=== PATIENT | female | born 1980 | race Caucasian/White ===

== ENCOUNTER 2017-01-10 11:10 | Emergency (ER) | payer OTHER ==
[~2017-01-10] VITALS: Ht 162.6 cm; Wt 81.5 kg
[2017-01-10] MEDS ORDERED: ONDANSETRON 2MG/ML, 2ML ONE (12:17)
[2017-01-10] MEDS ORDERED: MORPHINE SULFATE 4 MG/ML, 1ML ONE ×2 (12:17→13:11)
[2017-01-10] MEDS ORDERED: ONDANSETRON 2MG/ML, 2ML IVPush ONE (12:30)
[2017-01-10] MEDS ORDERED: SODIUM CHLORIDE FLUSH 10ML SYR IVF ONE (12:30)
[2017-01-10] MEDS ORDERED: MORPHINE SULFATE 4 MG/ML, 1ML IVPush PRN (12:30)
[2017-01-10 12:47] LABS: HEMOGLOBIN 13.6 g/dL (11.7-16.4)
[2017-01-10 12:55] LABS: ASPARTATE AMINO TRANSFERASE 18 U/L (15-37); BLOOD UREA NITROGEN 13 mg/dL (7-18)
[2017-01-10 15:12] VITALS: BP 99/57
== END 2017-01-10 15:15 | disposition home or self-care (01) ==
LOC: ED 14:56
DX: O20.0 Threatened abortion (principal); Z3A.09 9 weeks gestation of pregnancy
CPT/HCPCS: 36415; 76770; 76830; 80053; 81003; 84702; 85025; 86901; 96374; 96375; 99285; J2405

== ENCOUNTER 2017-06-09 16:30 | Outpatient (CLI) | payer OTHER ==
[~2017-06-09] VITALS: Ht 162.6 cm; Wt 91.4 kg
[2017-06-09] MEDS ORDERED: BETAMETHASONE 6 MG/ML, 5ML IM ONE ×2 (17:00→17:10)
[2017-06-09 17:31] VITALS: BP 121/60
[2017-06-09] MEDS ORDERED: PREN1TAB10 PO (17:54)
[2017-06-10] MEDS ORDERED: BETAMETHASONE 6 MG/ML, 5ML IM ONE (17:00)
== END 2017-06-09 18:08 | disposition home or self-care (01) ==
LOC: LDOP 16:30
PROVIDERS: ATTEND Obstetrics & Gynecology
DX: O09.523 Supervision of elderly multigravida, third trimester (principal); O60.03 Preterm labor without delivery, third trimester; Z3A.31 31 weeks gestation of pregnancy
CPT/HCPCS: 59025; 96372; 99211; J0702; G0463

== ENCOUNTER 2017-06-10 16:08 | Observation (INO) | payer OTHER ==
[~2017-06-10] VITALS: Ht 162.6 cm; Wt 91.4 kg
[~2017-06-10 16:08] MED LIST: PREN1TAB10 PO
[2017-06-10 16:13] VITALS: BP 106/62
[2017-06-10 16:28] VITALS: BP 106/62
[2017-06-10] MEDS ORDERED: BETAMETHASONE 6 MG/ML, 5ML IM ONE (16:30)
== END 2017-06-10 16:54 | disposition home or self-care (01) ==
LOC: LDOP 16:08 → LDIP 16:09
PROVIDERS: ADMIT Obstetrics & Gynecology; ATTEND Obstetrics & Gynecology
DX: O09.523 Supervision of elderly multigravida, third trimester (principal); Z3A.00 Weeks of gestation of pregnancy not specified
CPT/HCPCS: 59025; 96372; 99211; G0378; J0702; G0463

== ENCOUNTER 2017-07-08 11:26 | Outpatient (CLI) | payer OTHER ==
[~2017-07-08] VITALS: Ht 162.6 cm; Wt 92.7 kg
[2017-07-08 11:33] VITALS: BP 118/68
== END 2017-07-08 12:55 | disposition home or self-care (01) ==
LOC: LDOP 11:26
PROVIDERS: ATTEND Obstetrics & Gynecology
DX: O09.523 Supervision of elderly multigravida, third trimester (principal); O21.9 Vomiting of pregnancy, unspecified; O26.893 Other specified pregnancy related conditions, third trimester; R19.7 Diarrhea, unspecified; Z3A.35 35 weeks gestation of pregnancy
CPT/HCPCS: 59025; 81001; 87086; 99211; G0463

== ENCOUNTER 2017-07-17 22:38 | Outpatient (CLI) | payer OTHER ==
[~2017-07-17] VITALS: Ht 162.6 cm; Wt 93.0 kg
[2017-07-17] MEDS ORDERED: ACETAMINOPHEN 325 MG TABLET PO PRN (23:00)
[2017-07-17] MEDS ORDERED: ACETAMINOPHEN 325 MG TABLET ONE (23:04)
[2017-07-17] MEDS ORDERED: ACYC-113 PO (23:37)
[2017-07-18 00:44] LABS: ASPARTATE AMINO TRANSFERASE 21 U/L (15-37)
== END 2017-07-18 01:08 | disposition home or self-care (01) ==
LOC: LDOP 22:38
PROVIDERS: ATTEND Obstetrics & Gynecology
DX: O09.523 Supervision of elderly multigravida, third trimester (principal); O26.893 Other specified pregnancy related conditions, third trimester; O99.283 Endocrine, nutritional and metabolic diseases complicating pregnancy, third trimester; R10.9 Unspecified abdominal pain; E07.9 Disorder of thyroid, unspecified; Z3A.37 37 weeks gestation of pregnancy
CPT/HCPCS: 36415; 59025; 81001; 82150; 83690; 84450; 84460; 99211; G0463

== ENCOUNTER 2017-08-01 06:19 | Inpatient (IN) | payer OTHER ==
[~2017-08-01] VITALS: Ht 162.6 cm; Wt 95.0 kg
[~2017-08-01 06:19] MED LIST changes: +ACYC-113 PO
[2017-08-01] MEDS ORDERED: D5%-LACTATED RINGERS 1,000 ML IV SCH (06:21)
[2017-08-01] MEDS ORDERED: OXYTOCIN 30U/ 0.9% NaCL 500ML 500 ML IV ONE (06:21)
[2017-08-01] MEDS ORDERED: OXYTOCIN 30U/ 0.9% NaCL 500ML 500 ML IV PRN (06:21)
[2017-08-01] MEDS ORDERED: TERBUTALINE 1 MG/ML, 1ML IVPush PRN (06:30)
[2017-08-01] MEDS ORDERED: CALCIUM CARBONATE 500 MG TAB.CHEW PO PRN (06:30)
[2017-08-01] MEDS ORDERED: ONDANSETRON 2MG/ML, 2ML IVPush PRN (06:30)
[2017-08-01] MEDS ORDERED: FENTANYL PF 100 MCG/2ML IVPush PRN (06:30)
[2017-08-01] MEDS ORDERED: FENTANYL PF 100 MCG/2ML IV PRN (06:30)
[2017-08-01] MEDS: LACTATED RINGERS 1,000 ML IV SCH ×2 (06:40→11:30)
[2017-08-01 06:49] LABS: HEMATOCRIT 35.3 % (34.6-47.8); HEMOGLOBIN 11.8 g/dL (11.7-16.4); WHITE BLOOD COUNT 9.3 x10^3/uL (3.4-10)
[2017-08-01] MEDS ORDERED: NEWBORN KIT ONE (06:55)
[2017-08-01] MEDS ORDERED: LIDOCAINE 1%, 20ML ONE (07:42)
[2017-08-01] MEDS ORDERED: MISOPROSTOL 200 MCG TABLET ONE (07:42)
[2017-08-01] MEDS ORDERED: OXYTOCIN 30U/ 0.9% NaCL 500ML 500 ML ONE ×2 (07:42→20:14)
[2017-08-01] MEDS ORDERED: FENTANYL PF 100 MCG/2ML ONE (12:03)
[2017-08-01] MEDS ORDERED: FENTANYL/BUPIV./NS/PF 250 ML EPIDCONT ONE (12:03)
[2017-08-01] MEDS ORDERED: BUPIVACAINE 0.25% ONE (12:03)
[2017-08-01] MEDS ORDERED: LACTATED RINGERS 1,000 ML IV SCH (13:56)
[2017-08-01] MEDS ORDERED: FENTANYL/BUPIV./NS/PF 250 ML EPIDCONT SCH (13:56)
[2017-08-01] MEDS ORDERED: LACTATED RINGERS 1,000 ML IVBOLUS PRN (14:00)
[2017-08-01] MEDS ORDERED: HYDROcodone/APAP 5/325 TABLET PO PRN ×2 (20:00)
[2017-08-01] MEDS ORDERED: DOCUSATE 100 MG CAPSULE PO PRN (20:00)
[2017-08-01] MEDS ORDERED: MISOPROSTOL 200 MCG TABLET PR PRN (20:00)
[2017-08-01] MEDS ORDERED: ACETAMINOPHEN 325 MG TABLET PO PRN ×2 (20:00)
[2017-08-01] MEDS ORDERED: IBUPROFEN 600 MG TABLET ONE (20:14)
[2017-08-01] MEDS: OXYTOCIN 30U/ 0.9% NaCL 500ML 500 ML IV SCH (20:31)
[2017-08-01] MEDS: IBUPROFEN 600 MG TABLET PO PRN (20:31)
[2017-08-01 21:50] VITALS: BP 123/71
[2017-08-02 02:00] VITALS: BP 112/70
[2017-08-02] MEDS: IBUPROFEN 600 MG TABLET PO PRN ×2 (02:19→11:11)
[2017-08-02 05:25] LABS: HEMATOCRIT 30.3 % (34.6-47.8); HEMOGLOBIN 10.2 g/dL (11.7-16.4); WHITE BLOOD COUNT 12.4 x10^3/uL (3.4-10)
[2017-08-02] MEDS: OXYTOCIN 30U/ 0.9% NaCL 500ML 500 ML IV SCH ×2 (05:43→15:43)
[2017-08-02 07:30] VITALS: BP 119/76
[2017-08-02] MEDS ORDERED: PRENATAL VIT/IRON/FA 1 EACH TABLET PO SCH (09:00)
[2017-08-02] MEDS ORDERED: FERR324T8 PO (09:08)
[2017-08-02] MEDS ORDERED: IBUP-1222 PO (09:08)
[2017-08-02] MEDS ORDERED: HYDR-3240 PO (09:08)
[2017-08-02 11:30] VITALS: BP 114/68
== END 2017-08-02 16:50 | disposition home or self-care (01) | DRG 775 ==
LOC: LDIP 06:19 → 2NW 22:04
PROVIDERS: ADMIT Obstetrics & Gynecology; ATTEND Obstetrics & Gynecology
PROC: 10E0XZZ Delivery of Products of Conception, External Approach (ICD-10-PCS; principal; 2017-08-01)
PROC: 10907ZC Drainage of Amniotic Fluid, Therapeutic from Products of Conception, Via Natural or Artificial Opening (ICD-10-PCS; 2017-08-01)
PROC: 3E0P3VZ Introduction of Hormone into Female Reproductive, Percutaneous Approach (ICD-10-PCS; 2017-08-01)
PROC: 3E0R3BZ Introduction of Anesthetic Agent into Spinal Canal, Percutaneous Approach (ICD-10-PCS; 2017-08-01)
PROC: 00HU33Z Insertion of Infusion Device into Spinal Canal, Percutaneous Approach (ICD-10-PCS; 2017-08-01)
DX: O99.284 Endocrine, nutritional and metabolic diseases complicating childbirth (principal); E03.9 Hypothyroidism, unspecified; Z37.0 Single live birth; O99.354 Diseases of the nervous system complicating childbirth; Z3A.39 39 weeks gestation of pregnancy; G43.909 Migraine, unspecified, not intractable, without status migrainosus
CPT/HCPCS: 36415; 85025; 86850; 86900; J2590; J3010; J7120